=== PATIENT | male | born 1965 | race Caucasian/White ===

== ENCOUNTER 2017-03-02 03:08 | Emergency (ER) | payer BC, OTHER ==
[~2017-03-02] VITALS: Ht 177.8 cm; Wt 116.2 kg
[2017-03-02 03:14] VITALS: BP 143/82
[2017-03-02] MEDS ORDERED: LISIPOW (03:22)
[2017-03-02] MEDS ORDERED: FLUTISP (03:22)
[2017-03-02] MEDS ORDERED: ANDR2DIS (03:22)
[2017-03-02] MEDS ORDERED: MORPHINE 4 MG/ML 1ML SYRINGE IV ONE ×2 (03:45→05:00)
[2017-03-02 04:24] LABS: BASO # 0.1 10^3/uL (0.0-0.2); BASO % 0.9 % (0.0-1.0); EOS # 0.3 10^3/uL (0.0-0.50); EOS % 2.7 % (0.0-3.0); IMMATURE GRANULOCYTE % 1.6 % (0-0); LYMPH # 2.7 10^3/uL (1.5-4.5); LYMPH % 26.8 % (24.0-44.0); MEAN CORPUSCULAR HEMOGLOBIN 33.6 pg (27.0-33.0); MEAN CORPUSCULAR HGB CONC 36.9 g/dl (32.0-36.5); MEAN CORPUSCULAR VOLUME 91.1 fl (80.0-96.0); MONO # 1.1 10^3/uL (0.0-0.8); MONO % 10.9 % (0.0-5.0); NEUTROPHILS # 5.7 10^3/uL (1.8-7.7); NEUTROPHILS % 57.1 % (36.0-66.0); PLATELET COUNT, AUTOMATED 202 10^3/uL (150-450); RED CELL DISTRIBUTION WIDTH 14.6 % (11.5-14.5); WHITE BLOOD COUNT 9.9 10^3/uL (4.0-10.0)
--- NOTE | 2017-03-02 05:10 | REPUSA ---
CLINICAL HISTORY: RUQ pain. TECHNIQUE: Realtime sonographic images were obtained in multiple projections. COMMENTS: The visualized liver is of uniform increased echo texture without evidence of mass or defect. Foci of focal fatty sparing adjacent to the gallbladder fossa. There is no intra or extrahepatic biliary shannon blanca dilatation. The common bile duct measures 3.8 mm. The gallbladder is physiologically distended w ithout evidence of calculi. The gallbladder wall is not thickened and there is no pericholecystic flu id. The visualized portions of the pancreas are unremarkable. The right kidney measures 13.7x5.8x6.73 m. IMPRESSION: Hepatomegaly with fatty liver infiltration. Multifocal sparing adjacent to the gallbladder fossa. No evidence of cholelithiasis or acute cholecystitis. Thank you for your kind referral of this patient.
[2017-03-02 06:42] LABS: ALBUMIN/GLOBULIN RATIO 1.29 (1.00-1.93); ALKALINE PHOSPHATASE 152 U/L (45-117); ALT/SGPT 85 U/L (12-78); ANION GAP 8 MEQ/L (8-16); AST/SGOT 38 U/L (7-37); BILIRUBIN,DIRECT 0.3 MG/DL (0.0-0.2); BILIRUBIN,TOTAL 1.1 MG/DL (0.2-1.0); BLOOD UREA NITROGEN 11 MG/DL (7-18); CARBON DIOXIDE LEVEL 25 MEQ/L (21-32); CHLORIDE LEVEL 106 MEQ/L (98-107); CREATININE FOR GFR 0.89 MG/DL (0.70-1.30); GLOMERULAR FILTRATION RATE > 60.0 (>56); GLUCOSE, FASTING 118 MG/DL (70-105); POTASSIUM SERUM 4.3 MEQ/L (3.5-5.1); SODIUM LEVEL 139 MEQ/L (136-145); TOTAL PROTEIN 7.1 GM/DL (6.4-8.2)
[2017-03-02] MEDS ORDERED: OMEP40CA2 PO (06:46)
--- NOTE | 2017-03-03 07:20 | ECGEPIP ---
Stationary ECG Study [facility] - ED Test Date: 2017-03-02 Pat Name: UCHE PAZ Department: Room: - Gender: M Welding Operator: alejandra : 1965 Requested By: RADHA Melchor Order Number: [id number] Reading MD: Jasper Marquez Measurements Intervals Wilmot Rate: 71 P: 26 MD: 184 QRS: -12 QRSD: 100 T: -8 QT: 358 QTc: 390 Interpretive Statements SINUS RHYTHM MODERATE VOLTAGE CRITERIA FOR LVH, CONSIDER NORMAL VARIANT SUBTLE ST ELEVATION IN LEADS I AND aVL, CONSIDER ISCHEMIA/INFARCT T-WAVE INVERSION INFERIORLY, CONSIDER ISCHEMIA NO PRIORS FOR COMPARISON Electronically Signed On 03-03-2017 7:20:27 EST by Jasper Marquez
== END 2017-03-02 07:07 | disposition home or self-care (01) ==
LOC: M ED 03:08
DX: R10.11 Right upper quadrant pain (principal); I10 Essential (primary) hypertension; Z79.899 Other long term (current) drug therapy

== ENCOUNTER → 2017-06-01 | Outpatient (CLI) | payer OTHER, BC ==
[2017-06-01 17:08] LABS: BASO % 0.3 % (0.0-1.0); EOS # 0.2 10^3/uL (0.0-0.50); HEMATOCRIT 39.9 % (42.0-52.0); HEMOGLOBIN 13.7 g/dl (14.0-18.0); IMMATURE GRANULOCYTE % 0.8 % (0-3.0); LYMPH # 2.3 10^3/uL (1.5-4.5); MEAN CORPUSCULAR HEMOGLOBIN 29.7 pg (27.0-33.0); MEAN CORPUSCULAR HGB CONC 34.3 g/dl (32.0-36.5); MEAN CORPUSCULAR VOLUME 86.6 fl (80.0-96.0); MONO # 0.9 10^3/uL (0.0-0.8); MONO % 9.2 % (0.0-5.0); NEUTROPHILS # 6.5 10^3/uL (1.8-7.7); NEUTROPHILS % 64.7 % (36.0-66.0); PLATELET COUNT, AUTOMATED 244 10^3/uL (150-450); RED BLOOD COUNT 4.61 10^6/uL (4.30-6.10); RED CELL DISTRIBUTION WIDTH 13.5 % (11.5-14.5)
[2017-06-04 08:07] LABS: MUMPS VIRUS IgM ANTIBODY <0.80 AU (0.00-0.79)
== END ==
LOC: M WUC 14:33
DX: K11.21 Acute sialoadenitis (principal)
CPT/HCPCS: 86735

== ENCOUNTER → 2019-11-24 | Emergency (ER) | payer BC, OTHER ==
[~2019-11-24] MED LIST: ANDR2DIS; FLUTISP; LISIPOW; OMEP40CA97 PO
== END | disposition left against medical advice (07) ==
LOC: M ED 23:37
DX: Z53.21 Procedure and treatment not carried out due to patient leaving prior to being seen by health care provider (principal)

== ENCOUNTER → 2020-04-01 | Outpatient (CLI) | payer BC, OTHER | LOC: M LABSMTC 14:09 | PROVIDERS: ATTEND Pediatrics | DX: Z11.59 Encounter for screening for other viral diseases (principal) ==

== ENCOUNTER → 2020-04-16 | Outpatient (CLI) | payer BC, OTHER | LOC: M LABSMTC 13:35 | PROVIDERS: ATTEND Family Medicine | DX: Z20.828 Contact with and (suspected) exposure to other viral communicable diseases (principal) ==